=== PATIENT | male | born 1985 | race Caucasian/White ===

== ENCOUNTER 2018-01-12 22:56 | Emergency (ER) | payer OTHER ==
[~2018-01-12] VITALS: Ht 180.3 cm; Wt 70.3 kg
[2018-01-12 22:59] VITALS: BP 147/90
--- NOTE | 2018-01-12 23:05 | NUR ---
TO LOBBY, A/W BED, AMB, STABLE, ERMD NOTED
--- NOTE | 2018-01-12 23:36 | NUR ---
PATIENT AMBULATED TO ER CHAIR C Addendum: 01/12/18 at 2340 by [facility] PATIENT AMBULATED TO ER BED1
--- NOTE | 2018-01-12 23:52 | NUR ---
32 Y/O M W/C/O LOWER ABD PAIN, N/V X LAST THURSDAY. PT STATES LAST BM WAS THIS AM AND WAS NORMAL. MED HX APPENDECTOMY ON 2007, AND ACID REFLUX.
[2018-01-13] MEDS ORDERED: LORazepam 1 MG TAB PO ONE (00:30)
[2018-01-13] MEDS ORDERED: LORazepam 2 MG/ML VIAL IM ONE (00:30)
[2018-01-13 01:06] VITALS: BP 138/88
--- NOTE | 2018-01-13 01:06 | NUR ---
Patient discharged with v/s stable. Written and verbal after care instructions given and explained. Patient alert, oriented and verbalized understanding of instructions. Ambulatory with steady gait. All questions addressed prior to discharge. ID band removed. Patient advised to follow up with PMD TOMORROW. Rx of ATIVAN given. Patient educated on indication of medication including possible reaction and side effects. Opportunity to ask questions provided and answered. 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
== END 2018-01-13 01:06 | disposition home or self-care (01) ==
LOC: MED 22:56
DX: R10.84 Generalized abdominal pain (principal); R11.2 Nausea with vomiting, unspecified; F41.9 Anxiety disorder, unspecified; F12.10 Cannabis abuse, uncomplicated; Z90.49 Acquired absence of other specified parts of digestive tract
CPT/HCPCS: 99283